=== PATIENT | female | born 1985 | race Caucasian/White ===

== ENCOUNTER 2017-09-27 17:28 | Observation (INO) | payer OTHER ==
[~2017-09-27] VITALS: Ht 149.9 cm; Wt 80.7 kg
[2017-09-27] MEDS ORDERED: ONDANSETRON 4 MG INJ IV STA (18:23)
[2017-09-27] MEDS ORDERED: SOD CHLORIDE 0.9% 1,000 ML IV STA (18:23)
[2017-09-27] MEDS ORDERED: morphine 4 MG/ML VIAL IV STA (18:23)
[2017-09-27 18:59] LABS: BASOPHILS % 0.3 % (0.0-2.0); EOSINOPHILS # 0.2 10^3/ul (0.0-0.5); EOSINOPHILS % 1.4 % (0.0-7.0); HEMATOCRIT 36.3 % (37.0-47.0); HEMOGLOBIN 11.3 g/dl (12.0-16.0); LYMPHOCYTES # 2.6 10^3/ul (0.8-2.9); LYMPHOCYTES % 23.5 % (15.0-51.0); MEAN CORPUSCULAR HGB CONC 31.1 g/dl (32.0-37.0); MEAN CORPUSCULAR VOLUME 83.6 fl (82.0-101.0); MEAN PLATELET VOLUME 12.5 fl (7.4-10.4); MONOCYTE # 0.6 10^3/ul (0.3-0.9); MONOCYTES % 5.8 % (0.0-11.0); NEUTROPHIL # 7.5 10^3/ul (1.6-7.5); NEUTROPHILS % 68.5 % (39.0-77.0); PLATELET COUNT 224 10^3/UL (140-415); RED BLOOD COUNT 4.34 10^6/ul (4.20-5.40); RED CELL DISTRIBUTION WIDTH 13.2 % (11.5-14.5)
--- NOTE | 2017-09-27 19:05 | RADRPT ---
PROCEDURE: US Pelvis. CLINICAL INDICATION: Pelvic pain TECHNIQUE: Multiple sonographic images of the pelvis were obtained utilizing a transabdominal and endovaginal technique. The images were reviewed on a PACS workstation. COMPARISON: January 28, 2016 FINDINGS: The uterus is anteverted and measures 9.9 x 7.1 x 5.4 cm. The endometrial echo complex is normal and measures 8 mm. There is no evidence for free fluid. The right ovary has a normal echotexture and me asures 3.8 x 2.6 x 2.3 cm . The left ovary has a normal echotexture and measures 5.1 x 4.4 x 3.6 cm . There is a simple, 3.7 x 3.6 x 3.2 cm left follicular cyst. No adnexal masses are noted. IMPRESSION: 3.7 cm simple, left follicular cyst. Otherwise, negative exam. RPTAT: EE .Yoko Correia MD, MD Date Time Electronically viewed and signed by .Yook Correia MD, on 09/27/2017 19:05 .F/
[2017-09-27 19:15] LABS: ALBUMIN 4.3 g/dl (3.3-4.9); ALBUMIN/GLOBULIN RATIO 1.3; BILIRUBIN,INDIRECT 0.1 mg/dl (0-1.1); BILIRUBIN,TOTAL 0.1 mg/dl (0.2-1.3); CALCIUM 8.9 mg/dl (8.4-10.2); CREATININE 0.81 mg/dl (0.44-1.00); TOTAL PROTEIN 7.6 g/dl (6.1-8.1)
[2017-09-27 19:19] LABS: ADD UMIC YES; UR ASCORBIC ACID NEGATIVE (NEGATIVE); UR BACTERIA FEW /HPF (NONE SEEN); UR BILIRUBIN (Dip) NEGATIVE (NEGATIVE); UR BLOOD (Dip) 3+ mg/dL (NEGATIVE); UR CLARITY SLIGHTLY CLOUDY (CLEAR); UR COLOR YELLOW (YELLOW); UR GLUCOSE (Dip) NEGATIVE (NEGATIVE); UR KETONES (Dip) NEGATIVE (NEGATIVE); UR LEUKOCYTE ESTERASE (Dip) 3+ Leu/ul (NEGATIVE); UR MUCUS FEW /HPF (NONE SEEN); UR NITRITE (Dip) NEGATIVE (NEGATIVE); UR RBC 26 /HPF (0-5); UR SPECIFIC GRAVITY (Dip) 1.025 (1.003-1.030); UR SQUAMOUS EPITHELIAL CELL FEW /HPF (FEW); UR TOTAL PROTEIN (Dip) NEGATIVE (NEGATIVE); UR UROBILINOGEN (Dip) NEGATIVE (NEGATIVE)
--- NOTE | 2017-09-27 20:39 | RADRPT ---
PROCEDURE: US OB. CLINICAL INDICATION: Pelvic pain . Positive test TECHNIQUE: Transvaginal pelvic ultrasound are performed. COMPARISON: Earlier the same day FINDINGS: The uterus is normal in echogenicity and anteverted in orientation. No focal fibroids are identifi ed. Endometrial canal is distended with extensive debris and echogenic material. This is suspicious for missed or retained products of conception in the setting of a positive test. There is hyperemia the endometrial lining suggesting component of endometritis. Both ovaries are identified. There is a 3.2 cm simple appearing left ovarian cyst. This should be f ollowed to evaluate for resolution. No complex adnexal masses are identified. Normal Doppler flow i s noted of both ovaries. The right ovary measures 3.8 x 2.1 x 2.3 cm, and the left ovary measures 6.5 x 4.7 x 4.2 cm There is no free fluid in the pelvis IMPRESSION: 1. Distended endometrial canal with extensive echogenic debris material. This may represent retaine d products of conception/missed . 2. There is hyperemia of the endometrial lining suggesting a component of endometritis. 3. No intrauterine is seen. 4. 3.2 cm simple appearing left ovarian cyst. A follow-up ultrasound is recommended to evaluate for resolution. 5. Normal color flow to both ovaries. 6. No free fluid in the pelvis RPTAT: HH .Frank Peña MD, Date Time Electronically viewed and signed by .Frank Peña MD, MD on 09/27/2017 20:38 .W/
[2017-09-27] MEDS ORDERED: CEFTRIAXONE 1 GM/50 ML (PMX) 50 ML IVPB ONE (22:00)
[2017-09-27] MEDS ORDERED: ONDANSETRON 4 MG INJ IV PRN (22:00)
[2017-09-27] MEDS ORDERED: SOD CHLORIDE 0.9% 1,000 ML IV ONE (22:00)
[2017-09-27] MEDS ORDERED: ACETAMINOPHEN 325 MG TAB PO PRN (22:00)
--- NOTE | 2017-09-27 23:42 | ERD ---
ER Documentation Chief Complaint Chief Complaint rlq, n/v/d, coughing HPI 32-year-old female patient who is a A2 presents to the ED complaining of right and left lower quadrant abdominal pain that radiates to her back that started 2 days ago. Patient reports that she has had some nausea and slight nonbilious nonbloody vomiting. Denies any diarrhea, constipation. Reports that she has had some vaginal bleeding and vaginal spotting since July 15, 2017. Denies any chest pain, breath, wheezing, fever, chills, vaginal discharge. Reports that she has been sexually active has been using protection. States that she took Cytotec on July 15, 2017 for an at [facility]. States that she has had to change 8 pads per day. ROS All systems reviewed and are negative except as per history of present illness. Medications Home Meds No Active Prescriptions or Reported Meds Allergies Allergies: Coded Allergies: No Known Drug Allergies (Verified Allergy, Mild, 01/25/16) PMhx/Soc History of Surgery: No Anesthesia Reaction: No Hx Neurological Disorder: No Hx Respiratory Disorders: No Hx Cardiac Disorders: No Hx Psychiatric Problems: No Hx Miscellaneous Medical Probl: No Hx Alcohol Use: No Hx Substance Use: No Hx Tobacco Use: No Smoking Status: Never smoker Physical Exam Vitals Vital Signs Date Time Temp Pulse Resp B/P Pulse Ox O2 Delivery O2 Flow Rate FiO2 09/27/17 20:01 73 17 118/72 100 Room Air 09/27/17 17:31 99.5 90 20 119/72 100 Physical Exam Const: [id number], well-nourished. In no acute distress. Head: Atraumatic, normocephalic Eyes: Normal Conjunctiva without injection. No purulent discharge. ENT: Normal external ear, nose. Moist oropharynx without tonsillar exudates. Non -erythematous pharynx. Uvula midline. No drooling. No trismus. Neck: No cervical midline tenderness. Full range of motion. No meningismus. No cervical lymphadenopathy. No JVD. Resp: Clear to auscultation bilaterally. No wheezing, rhonchi, rales, or crackles. No accessory muscle use. No retractions. Cardio: Regular rate and rhythm. No murmurs, rubs or gallops. Abd: Soft, tender to palpation of the right and left lower quadrants, non distended. Normal bowel sounds. No palpable masses. No rebound tenderness. No guarding. Negative McBurney's point. Negative psoas sign. Negative obturator sign. Skin: No petechiae or rashes Back: No midline tenderness. No CVA tenderness. Ext: No cyanosis, or edema. Neur: Awake and alert. Normal gait. Normal coordination. Psych: Normal Mood and Affect Result Diagram: 09/27/17183809/27/171838 Results 24 hrs Laboratory Tests Test 09/27/17 18:39 09/27/17 20:00 White Blood Count 11.010^3/ul Red Blood Count 4.3410^6/ul Hemoglobin 11.3g/dl Hematocrit 36.3% Mean Corpuscular Volume 83.6fl Mean Corpuscular Hemoglobin 26.0pg Mean Corpuscular Hemoglobin Concent 31.1g/dl Red Cell Distribution Width 13.2% Platelet Count 60303^3/UL Mean Platelet Volume 12.5fl Neutrophils % 68.5% Lymphocytes % 23.5% Monocytes % 5.8% Eosinophils % 1.4% Basophils % 0.3% Nucleated Red Blood Cells % 0.0/100WBC Neutrophils # 7.510^3/ul Lymphocytes # 2.610^3/ul Monocytes # 0.610^3/ul Eosinophils # 0.210^3/ul Basophils # 0.010^3/ul Nucleated Red Blood Cells # 0.010^3/ul Urine Color YELLOW Urine Clarity SLIGHTLY CLOUDY Urine pH 5.0 Urine Specific [place] 1.025 Urine Ketones NEGATIVEmg/dL Urine Nitrite NEGATIVEmg/dL Urine Bilirubin NEGATIVEmg/dL Urine Urobilinogen NEGATIVEmg/dL Urine Leukocyte Esterase 3+[place]/ul Urine Microscopic RBC 26/HPF Urine Microscopic WBC 80/HPF Urine Squamous Epithelial Cells FEW/HPF Urine Bacteria FEW/HPF Urine Mucus FEW/HPF Urine Hemoglobin 3+mg/dL Urine Glucose NEGATIVEmg/dL Urine Total Protein NEGATIVEmg/dl Sodium Level 144mmol/L Potassium Level 4.0mmol/L Chloride Level 105mmol/L Carbon Dioxide Level 26mmol/L Anion Gap 17 Blood Urea Nitrogen 16mg/dl Creatinine 0.81mg/dl Glucose Level 90mg/dl Calcium Level 8.9mg/dl Total Bilirubin 0.1mg/dl Direct Bilirubin 0.00mg/dl Indirect Bilirubin 0.1mg/dl Aspartate Amino Transf (AST/SGOT) 18IU/L Alanine Aminotransferase (ALT/SGPT) 29IU/L Alkaline Phosphatase 85IU/L Total Protein 7.6g/dl Albumin 4.3g/dl Globulin 3.30g/dl Albumin/Globulin Ratio 1.30 Lipase 76U/L Serum HCG, Qualitative POSITIVE Beta HCG, Quantitative 55.4mIU/ml Current Medications Medications (Trade) Dose Ordered Sig/Collin Route PRN Reason Start Time Stop Time Status Last Admin Dose Admin Sodium Chloride (NS) 1,000 ml @ 1,000 mls/hr Q1H STAT IV 09/27/17 18:23 09/27/17 19:22 DC 09/27/17 18:41 Morphine Sulfate (morphine) 4 mg ONCE STAT IV 09/27/17 18:23 09/27/17 18:26 DC 09/27/17 18:41 Ondansetron HCl (Zofran Inj) 4 mg ONCE STAT IV 09/27/17 18:23 09/27/17 18:26 DC 09/27/17 18:41 Procedures/MDM This is a 32-year-old female patient who is a A2 presents to the ED complaining of right and left lower quadrant abdominal pain and has been experiencing vaginal bleeding. Patient is afebrile and nontoxic-appearing. Patient has normal vital signs. An ultrasound, beta-hCG, CBC, type and RH, UA was ordered to evaluate patient. CBC: No evidence of severe infection or anemia CMP: No evidence of alkalosis, acidosis, DKA, renal or liver disease Urine: No elevation in nitrites, 3+ leukocyte esterase, 3+ hematuria. Rh: O positive No indication for Rhogam at this time. beta Hc.4 PROCEDURE: US OB. CLINICAL INDICATION: Pelvic pain . Positive test TECHNIQUE: Transvaginal pelvic ultrasound are performed. COMPARISON: Earlier the same day FINDINGS: The uterus is normal in echogenicity and anteverted in orientation. No focal fibroids are identified. Endometrial canal is distended with extensive debris and echogenic material. This is suspicious for missed or retained products of conception in the setting of a positive test. There is hyperemia the endometrial lining suggesting component of endometritis. Both ovaries are identified. There is a 3.2 cm simple appearing left ovarian cyst. This should be followed to evaluate for resolution. No complex adnexal masses are identified. Normal Doppler flow is noted of both ovaries. The right ovary measures 3.8 x 2.1 x 2.3 cm, and the left ovary measures 6.5 x 4.7 x 4.2 cm There is no free fluid in the pelvis IMPRESSION: 1. Distended endometrial canal with extensive echogenic debris material. This may represent retained products of conception/missed . 2. There is hyperemia of the endometrial lining suggesting a component of endometritis. 3. No intrauterine is seen. 4. 3.2 cm simple appearing left ovarian cyst. A follow-up ultrasound is recommended to evaluate for resolution. 5. Normal color flow to both ovaries. 6. No free fluid in the pelvis PROCEDURE: US Pelvis. CLINICAL INDICATION: Pelvic pain TECHNIQUE: Multiple sonographic images of the pelvis were obtained utilizing a transabdominal and endovaginal technique. The images were reviewed on a PACS workstation. COMPARISON: January 28, 2016 FINDINGS: The uterus is anteverted and measures 9.9 x 7.1 x 5.4 cm. The endometrial echo complex is normal and measures 8 mm. There is no evidence for free fluid. The right ovary has a normal echotexture and measures 3.8 x 2.6 x 2.3 cm . The left ovary has a normal echotexture and measures 5.1 x 4.4 x 3.6 cm. There is a simple, 3.7 x 3.6 x 3.2 cm left follicular cyst. No adnexal masses are noted. IMPRESSION: 3.7 cm simple, left follicular cyst. Otherwise, negative exam. Patient's bleeding symptoms have stabilized while in the department. Patient reports that she is currently having vaginal spotting. This was discussed with my supervising physician, Dr. Campbell agreed with the management and admission plan. This was discussed with Dr. Cain, laborist legal consultant who will be admitting the patient at this time for products of conception for a dilation and curettage. Patient also has hyperemia of the endometrial lining suggesting a component of endometritis. Patient also has a left follicular cyst that is 3.7 cm. Low suspicion for symptomatic anemia, ectopic , sepsis, PID, appendicitis, ovarian torsion, tubo-ovarian abscess, surgical abdomen, or other emergent conditions. Patient will be admitted to [facility] for observation until Dr. Cain evaluates the patient tomorrow morning. Patient is hemodynamically stable. Departure Diagnosis: Primary Impression: Retained products of conception Condition: THERESA Chandler PA-C Sep 27, 2017 23:42 simple, 3.7 x 3.6 x 3.2 cm left follicular cyst. No adnexal masses are noted. IMPRESSION: 3.7 cm simple, left follicular cyst. Otherwise, negative exam. Patient's bleeding symptoms have stabilized while in the department. Patient reports that she is currently having vaginal spotting. This was discussed with my supervising physician, Dr. Campbell who agreed with the management and admission plan. This was discussed with Dr. Cain, laborist legal consultant who will be admitting the patient at this time for products of conception for a dilation and curettage. Patient also has hyperemia of the endometrial lining suggesting a component of endometritis. Patient also has a left follicular cyst that is 3.7 cm. Low suspicion for symptomatic anemia, ectopic , sepsis, PID, appendicitis, ovarian torsion, tubo-ovarian abscess, surgical abdomen, or other emergent conditions. Patient will be admitted to [facility] for observation until Dr. Cain evaluates the patient tomorrow morning. Patient is hemodynamically stable. Departure Diagnosis: Primary Impression: Retained products of conception Condition: THERESA Chandler PA-C Sep 27, 2017 23:42
[2017-09-28] VITALS (24 sets, daily range): BP systolic 96–121; BP diastolic 54–85; PULSE 57–90; RESP 14–18; TEMP 98.2; Ht 149.9 cm; Wt 80.7 kg
--- NOTE | 2017-09-28 04:35 | CONS ---
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 She stated that she had medical at 7w by U/S on july 15 [facility],need to be f/u in 2weeks and 3days prior to f/u appointment, she started having vaginal bleeding on and off ,some weeks heavy and other weeks light up to present but all these weeks had no pevic pain up until after intercouse 2days prior to this visit.(in julember had also multiple intercourse ,didnt cause any pain in the pelvic area ) with no protection. u/s at ED revealed enlaarged uterus withecho complex in utero with left simple cyst. patient was given option to try pill or surgical procedur which is suction curettage. patient chose to have suction curettage over pill suction curettage will be done today sometime depends upon availability in OR neg except pevic pain and nausea Constitutional: improved, no complaints Genitourinary: bleeding, other (pelvic pain) Past Medical History Medical History: no pertinent history Family History Significant Family History: no pertinent family hx Social History Alcohol Use: none Smoking Status: Former smoker Drug Use: none Exam/Review of Systems Vital Signs Vitals Vital Signs Date Time Temp Pulse Resp B/P Pulse Ox O2 Delivery O2 Flow Rate FiO2 09/28/17 01:04 98.3 83 16 112/85 100 Room Air Exam Constitutional: alert, oriented, well developed Psych: nl mood/affect, no complaints Head: atraumatic, normocephalic Eyes: EOMI, PERRL, nl conjunctiva, nl lids, nl sclera ENMT: nl external ears & nose, nl lips & teeth, nl nasal mucosa & septum Neck: non-tender, supple Respiratory: clear to auscultation, normal air movement Cardiovascular: nl pulses, regular rate and rhythm Gastrointestinal: nl liver, spleen, non-tender, soft Genitourinary - Female: CMT, CVA tenderness, nl adnexae, nl external genitalia , other, uterus (enlarged and left ovarian cyst) Musculoskeletal: nl extremities to inspection, nl gait and stance Extremities: normal pulses Neurological: CONSUMER LENDER II-XII intact, nl mental status, nl speech, nl strength Skin: nl turgor, No rash or lesions Lymph: nl lymph nodes Results Result Diagram: 09/27/17183809/27/17 183 Results 24 hrs Laboratory Tests Test 09/27/17 18:39 09/27/17 20:00 White Blood Count 11.0 #H Red Blood Count 4.34 Hemoglobin 11.3 L Hematocrit 36.3 L Mean Corpuscular Volume 83.6 Mean Corpuscular Hemoglobin 26.0 L Mean Corpuscular Hemoglobin Concent 31.1 L Red Cell Distribution Width 13.2 Platelet Count 224 Mean Platelet Volume 12.5 H Neutrophils % 68.5 Lymphocytes % 23.5 Monocytes % 5.8 Eosinophils % 1.4 Basophils % 0.3 Nucleated Red Blood Cells % 0.0 Neutrophils # 7.5 Lymphocytes # 2.6 Monocytes # 0.6 Eosinophils # 0.2 Basophils # 0.0 Nucleated Red Blood Cells # 0.0 Urine Color YELLOW Urine Clarity SLIGHTLY CLOUDY A Urine pH 5.0 Urine Specific [place] 1.025 Urine Ketones NEGATIVE Urine Nitrite NEGATIVE Urine Bilirubin NEGATIVE Urine Urobilinogen NEGATIVE Urine Leukocyte Esterase 3+ H Urine Microscopic RBC 26 H Urine Microscopic WBC 80 H Urine Squamous Epithelial Cells FEW Urine Bacteria FEW A Urine Mucus FEW A Urine Hemoglobin 3+ H Urine Glucose NEGATIVE Urine Total Protein NEGATIVE Sodium Level 144 Potassium Level 4.0 Chloride Level 105 Carbon Dioxide Level 26 Anion Gap 17 H Blood Urea Nitrogen 16 Creatinine 0.81 Glucose Level 90 Calcium Level 8.9 Total Bilirubin 0.1 L Direct Bilirubin 0.00 Indirect Bilirubin 0.1 Aspartate Amino Transf (AST/SGOT) 18 Alanine Aminotransferase (ALT/SGPT) 29 Alkaline Phosphatase 85 Total Protein 7.6 Albumin 4.3 Globulin 3.30 H Albumin/Globulin Ratio 1.30 Lipase 76 Serum HCG, Qualitative POSITIVE Beta HCG, Quantitative 55.4 Medications Medications Current Medications Influenza Virus Vaccine (Fluzone) 0.5 ml ONCE ONCE IM* ; Start 09/29/17 at 09: 00; Stop 09/29/17 at 09:01 MICHELA NAGEL MD Sep 28, 2017 04:31
[2017-09-28] MEDS: SOD CHLORIDE 0.45% 1,000 ML IV SCH ×2 (05:29→14:25)
[2017-09-28] MEDS ORDERED: morphine 4 MG/ML VIAL IV STA (08:22)
[2017-09-28] MEDS ORDERED: MIDAZOLAM 1 MG/ML 2 ML INJ ONE (10:29)
[2017-09-28] MEDS ORDERED: FENTAnyl 50 MCG/ML VIAL ONE ×2 (10:29→11:30)
[2017-09-28] MEDS ORDERED: OXYTOCIN 10 UNIT INJ ONE (10:41)
--- NOTE | 2017-09-28 11:01 | SIPON ---
Date/Time of Note Date/Time of Note DATE: 09/28/17 TIME: 11:00 Operative Report Preoperative Diagnosis incomplete Postoperative Diagnosis see path report Operation/Procedure Performed suction curettage Surgeon see signature line department assistant none Anesthesia: general Estimated blood loss: 10 - 50 ml's Transfusion Required none Specimen POC Grafts/Implants none Complications none MICHELA NAGEL MD Sep 28, 2017 11:01
[2017-09-28] MEDS ORDERED: ONDANSETRON 4 MG INJ ONE (11:03)
[2017-09-28] MEDS ORDERED: LIDOCAINE 2% (SDV) 5 ML INJ ONE (11:03)
[2017-09-28] MEDS ORDERED: PROPOFOL 20 ML ONE (11:03)
[2017-09-28] MEDS ORDERED: CEFAZOLIN 1 GM INJ ONE (11:03)
[2017-09-28] MEDS ORDERED: FENTAnyl 50 MCG/ML VIAL IV PRN (11:30)
[2017-09-28] MEDS ORDERED: METOCLOPRAMIDE 10 MG INJ IV PRN (11:30)
[2017-09-28] MEDS ORDERED: HYDROmorphONE (0.2 MG/ML) 10ML SYG IV PRN ×2 (11:30)
[2017-09-28] MEDS ORDERED: MEPERIDINE 25 MG INJ IV PRN (11:30)
[2017-09-28] MEDS ORDERED: ONDANSETRON 4 MG INJ IV PRN ×2 (11:30→14:00)
[2017-09-28] MEDS ORDERED: DIPHENHYDRAMINE 50 MG INJ IV PRN (11:30)
[2017-09-28] MEDS ORDERED: OXYCODONE/ACETAMINOPHEN (5/325) TAB PO PRN (14:00)
--- NOTE | 2017-09-28 15:02 | PD.PPDC ---
JEWEL SETTER Discharge Instruction Diagnosis Final Diagnosis: s/p incomplete s/p suction curettage Condition Patient Condition: Stable Diet Diet: Resume Regular Diet Activity/Restrictions Activity: May Shower Restrictions: Nothing in the Vagina No Bas[place] No Tampons, douche Follow-up Follow-up with Physician: 2, Week/Weeks Provider Information: call make eric at [phone] in 2weeks for f/u if she has no DR Return to clinic for MARKETING OPERATIONS SPECIALIST Instructions: Fever greater than 101 Chills Worsening abdominal pain Excessive Vaginal Bleeding More than 2 pads per hour Unable to tolerate diet MICHELA NAGEL MD Sep 28, 2017 15:02
[2017-09-28] MEDS ORDERED: INFLUENZA VIRUS VACCINE 0.5 ML SYG IM* ONE (18:00)
[2017-09-29] MEDS ORDERED: INFLUENZA VIRUS VACCINE 0.5 ML (DISPENSING) IM* ONE (09:00)
--- NOTE | 2017-09-29 22:51 | OPR ---
DATE OF OPERATION: 09/28/2017 PREOPERATIVE DIAGNOSIS: Incomplete . POSTOPERATIVE DIAGNOSIS: See pathological report. OPERATION PERFORMED: Suction curettage. ANESTHESIA: General. ANESTHESIOLOGIST: Refer to the chart. ESTIMATED BLOOD LOSS: Approximately 50 mL. PROCEDURE: Under appropriate induction of general anesthesia, the patient was placed in dorsal lith otomy position. The perineal area and vagina wall were prepped and draped in usual aseptic manner. Bimanual examination, uterus felt to be approximately 9 weeks of gestation size, mobile, cervix smo oth, relatively soft. There was no palpable adnexal pathology. Weighted speculum introduced into t he vagina. Cervix identified, which was grasped with a single tooth tenaculum. Os was opened to si ze 10 Hegar without resistance. Cavity was 9.5 cm and size #8 suction curette was introduced. Enti re uterine cavity was suctioned with obtaining some tissue which appeared to be POC followed by radha p curette in all directions with obtaining additional tissue and then resuctioned the cavity. Ten u nits of Pitocin were given through the IV infusion. Procedure was completed. All the instruments w ere removed. Estimated blood loss approximately 50 mL and patient withstood the procedure and well, was sent to recovery in stable condition. Dictated By: DAI BAR/LUIS ENRIQUE Conf#: [id number] DID#: [id number]
== END 2017-09-28 19:06 | disposition home or self-care (01) ==
LOC: FTE 17:28 → MS1 21:39
PROVIDERS: ADMIT Obstetrics & Gynecology; ATTEND Obstetrics & Gynecology
DX: O03.4 Incomplete spontaneous abortion without complication (principal); E66.01 Morbid (severe) obesity due to excess calories; Z68.35 Body mass index [BMI] 35.0-35.9, adult; Z23 Encounter for immunization
CPT/HCPCS: 36415; 59812; 76817; 76856; 80053; 81001; 83690; 84702; 84703; 85025; 86900; 86901; 87086; 88305; 90686; 96365; 96366; 96375; J0690; J0696; J2250; J2270; J2405; J2590; J3010; J7030; Z7500; Z7502; Z7512; Z7610; G0378